=== PATIENT | female | born 1930 | race Caucasian/White ===

== ENCOUNTER → 2021-11-20 | Outpatient (CLI) | payer MEDICARE, OTHER ==
[~2021-11-20] MED LIST: ASP81TEC PO; AZIL80TA PO; CARB100T PO; DILT120C PO; FISH1CAP15 PO; PRAV80TA2 PO; VITAMINES PO
[2021-11-20 06:32] LABS: ALBUMIN 3.5 GM/DL (3.2-4.5); POTASSIUM 4.7 MMOL/L (3.6-5.0)
[2021-11-20 06:34] LABS: CALCIUM 9.2 MG/DL (8.5-10.1)
[2021-11-20 06:35] LABS: TOTAL PROTEIN 5.7 GM/DL (6.4-8.2)
[2021-11-20 06:37] LABS: BILIRUBIN,TOTAL 0.4 MG/DL (0.1-1.0)
[2021-11-20 06:38] LABS: CREATININE SERUM 1.38 MG/DL (0.60-1.30)
== END ==
LOC: LAB 06:26
PROVIDERS: ATTEND Internal Medicine
DX: Z01.89 Encounter for other specified special examinations (principal)
CPT/HCPCS: 36415; 80053